=== PATIENT | male | born 1950 | race Caucasian/White ===

== ENCOUNTER 2018-12-30 10:17 | Inpatient (IN) | payer MEDICAID ==
[2018-12-30 11:23] LABS: ADD MAN DIFF? NO
[2018-12-30 11:29] LABS: BASOPHIL # 0.1 10^3/ul (0.0-0.1); BASOPHILS % 0.7 % (0.0-2.0); EOSINOPHILS # 0.2 10^3/ul (0.0-0.5); EOSINOPHILS % 2.2 % (0.0-7.0); HEMATOCRIT 37.1 % (42.0-52.0); HEMOGLOBIN 12.2 g/dl (14.0-18.0); LYMPHOCYTES # 2.1 10^3/ul (0.8-2.9); LYMPHOCYTES % 26.1 % (15.0-51.0); MEAN CORPUSCULAR HEMOGLOBIN 29.3 pg (29.0-33.0); MEAN CORPUSCULAR HGB CONC 32.9 g/dl (32.0-37.0); MEAN CORPUSCULAR VOLUME 89.2 fl (82.0-101.0); MEAN PLATELET VOLUME 10.1 fl (7.4-10.4); MONOCYTE # 0.6 10^3/ul (0.3-0.9); MONOCYTES % 7.1 % (0.0-11.0); NEUTROPHIL # 5.2 10^3/ul (1.6-7.5); NEUTROPHILS % 63.7 % (39.0-77.0); PLATELET COUNT 330 10^3/UL (140-415); RED BLOOD COUNT 4.16 10^6/ul (4.70-6.10); RED CELL DISTRIBUTION WIDTH 12.8 % (11.5-14.5)
[2018-12-30 11:29] LABS: WHITE BLOOD COUNT 8.2 10^3/ul (4.8-10.8)
[2018-12-30] MEDS: KETOROLAC 15 MG INJ IV (11:31)
[2018-12-30] MEDS: LACTATED RINGER'S 1,000 ML IV (11:31)
[2018-12-30] MEDS: PIPER-TAZO 3.375 GM IV (PMX) 100 ML IVPB (11:32)
[2018-12-30 11:41] LABS: ANION GAP 8 (5-13); BLOOD UREA NITROGEN 28 mg/dl (7-20); CARBON DIOXIDE 27 mmol/L (21-31); CHLORIDE 106 mmol/L (97-110); CREATININE 0.95 mg/dl (0.61-1.24); Estimated GFR > 60 mL/min (>60); GLUCOSE 125 mg/dl (70-220); POTASSIUM 5.4 mmol/L (3.5-5.1); SODIUM 141 mmol/L (135-144)
[2018-12-30 11:49] LABS: INR 0.94; PROTIME 12.7 Sec (11.9-14.9)
[2018-12-30 11:50] LABS: PARTIAL THROMBOPLASTIN TIME 32.1 Sec (23.0-35.0)
[2018-12-30] MEDS: VANCOMYCIN 1 GM (PMX) 250 ML IVPB (12:13)
[2018-12-30] MEDS ORDERED: ACETAMINOPHEN 325 MG TAB PO (14:30)
[2018-12-30] MEDS ORDERED: NACL 0.9% 3 ML SYG IV (14:30)
[2018-12-30] MEDS ORDERED: VANCOMYCIN IV PER PHARMACY XX (14:30)
[2018-12-30] MEDS: SODIUM POLYSTYRENE 15 GM KIT (POWDER + SORBITOL) PO (15:15)
[2018-12-30] MEDS: NA POLYST SULFON 15 GM/60 ML BTL PO (15:18)
[2018-12-30] MEDS: INSULIN ASPART [NOVOLOG] 3 ML PEN SC ×2 (17:40→20:46)
[2018-12-30] MEDS: VANCOMYCIN 1 GM 250 ML IVPB (20:39)
[2018-12-30] MEDS: BUSPIRONE 10 MG TAB PO (20:46)
[2018-12-30] MEDS: INSULIN GLARGINE [LANTus] (100 UNITS/ML) SYG SC (20:48)
[2018-12-30] MEDS: ACCU-CHEK XX (21:40)
[2018-12-31 06:21] LABS: ADD MAN DIFF? NO
[2018-12-31 06:26] LABS: BASOPHIL # 0.1 10^3/ul (0.0-0.1); BASOPHILS % 0.8 % (0.0-2.0); EOSINOPHILS # 0.3 10^3/ul (0.0-0.5); EOSINOPHILS % 4.1 % (0.0-7.0); HEMATOCRIT 32.9 % (42.0-52.0); HEMOGLOBIN 11.1 g/dl (14.0-18.0); LYMPHOCYTES % 31.1 % (15.0-51.0); MEAN CORPUSCULAR HEMOGLOBIN 29.8 pg (29.0-33.0); MEAN CORPUSCULAR HGB CONC 33.7 g/dl (32.0-37.0); MEAN CORPUSCULAR VOLUME 88.2 fl (82.0-101.0); MEAN PLATELET VOLUME 9.2 fl (7.4-10.4); MONOCYTE # 0.6 10^3/ul (0.3-0.9); NEUTROPHIL # 3.6 10^3/ul (1.6-7.5); NEUTROPHILS % 54.7 % (39.0-77.0); PLATELET COUNT 285 10^3/UL (140-415); RED BLOOD COUNT 3.73 10^6/ul (4.70-6.10); RED CELL DISTRIBUTION WIDTH 12.6 % (11.5-14.5)
[2018-12-31 06:26] LABS: WHITE BLOOD COUNT 6.6 10^3/ul (4.8-10.8)
[2018-12-31 06:44] LABS: HEMOGLOBIN A1C 6.4 % (0-5.9)
[2018-12-31] MEDS ORDERED: GLUCOSE GEL 15 GRAM TUBE PO ×2 (06:45)
[2018-12-31] MEDS ORDERED: GLUCOSE GEL 15 GRAM TUBE BUCCAL (06:45)
[2018-12-31] MEDS ORDERED: DEXTROSE 50% 50 ML SYRINGE IV ×2 (06:45)
[2018-12-31] MEDS ORDERED: GLUCAGON 1 MG INJ IM (06:45)
[2018-12-31 06:54] LABS: ALANINE AMINOTRANSFERASE 9 IU/L (13-69); ALBUMIN 3.6 g/dl (3.3-4.9); ALBUMIN/GLOBULIN RATIO 1.24; ALKALINE PHOSPHATASE 37 IU/L (42-121); ANION GAP 9 (5-13); ASPARTATE AMINO TRANSFERASE 19 IU/L (15-46); BILIRUBIN,INDIRECT 0.2 mg/dl (0-1.1); BILIRUBIN,TOTAL 0.2 mg/dl (0.2-1.3); BLOOD UREA NITROGEN 31 mg/dl (7-20); CALCIUM 9.4 mg/dl (8.4-10.2); CARBON DIOXIDE 25 mmol/L (21-31); CHLORIDE 108 mmol/L (97-110); CHOL/HDL RATIO 6.4 RATIO; CHOLESTEROL 154 mg/dl (100-200); CREATININE 0.92 mg/dl (0.61-1.24); Estimated GFR > 60 mL/min (>60); GLUCOSE 80 mg/dl (70-220); HDL CHOLESTEROL 24 mg/dl (31-75); LDL CHOLESTEROL,CALCULATED 101 mg/dl; MAGNESIUM 1.9 mg/dl (1.7-2.5); PHOSPHORUS 3.7 mg/dl (2.5-4.9); POTASSIUM 3.5 mmol/L (3.5-5.1); SODIUM 142 mmol/L (135-144); TOTAL PROTEIN 6.5 g/dl (6.1-8.1); TRIGLYCERIDES 146 mg/dl (0-149)
[2018-12-31] MEDS: FENOFIBRATE 145 MG TAB PO (08:05)
[2018-12-31] MEDS: ENOXAPARIN 40 MG/0.4 ML SYG SC (08:05)
[2018-12-31] MEDS: BUSPIRONE 10 MG TAB PO ×2 (08:05→21:16)
[2018-12-31] MEDS: INSULIN ASPART [NOVOLOG] 3 ML PEN SC ×4 (08:09→21:36)
[2018-12-31] MEDS: NICOTINE (21 MG/24 HR) PATCH TRANSDERM (08:28)
[2018-12-31] MEDS: VANCOMYCIN 1 GM 250 ML IVPB ×2 (08:28→21:16)
[2018-12-31] MEDS ORDERED: NICOTINE (14 MG/24 HR) PATCH TRANSDERM (11:30)
[2018-12-31] MEDS ORDERED: FENTAnyl 50 MCG/ML VIAL (14:51)
[2018-12-31] MEDS ORDERED: MIDAZOLAM 1 MG/ML 2 ML INJ (14:51)
[2018-12-31] MEDS ORDERED: IODIXANOL LOCM 100 ML BTL (15:13)
[2018-12-31] MEDS ORDERED: HEPARIN 1000 UNITS/ML 10 ML INJ (15:13)
[2018-12-31] MEDS ORDERED: HEPARIN 1000 UNITS/NS (A-LINE) 1,000 ML (15:13)
[2018-12-31] MEDS ORDERED: LIDOCAINE 1% (MDV) 20 ML INJ (15:13)
[2018-12-31] MEDS: PIPER-TAZO 3.375 GM IV (PMX) 100 ML IVPB ×2 (17:45→23:24)
[2018-12-31 19:49] LABS: GLUCOSE 127 mg/dl (70-220)
[2018-12-31 19:55] LABS: VANCOMYCIN,TROUGH 15.4 ug/ml (10.0-20.0)
[2018-12-31] MEDS: SOD CHLORIDE 0.9% 1,000 ML IV (21:16)
[2018-12-31] MEDS: INSULIN GLARGINE [LANTus] (100 UNITS/ML) SYG SC (21:18)
[2019-01-01] MEDS ORDERED: ACCU-CHEK XX (02:00)
[2019-01-01] MEDS: HYDROCODONE/APAP (5/325) TAB PO ×2 (05:00→20:11)
[2019-01-01] MEDS: PIPER-TAZO 3.375 GM IV (PMX) 100 ML IVPB ×2 (05:01→13:47)
[2019-01-01 07:55] LABS: ADD MAN DIFF? NO
[2019-01-01] MEDS: INSULIN ASPART [NOVOLOG] 3 ML PEN SC ×4 (08:00→20:19)
[2019-01-01 08:04] LABS: BASOPHILS % 0.5 % (0.0-2.0); EOSINOPHILS # 0.2 10^3/ul (0.0-0.5); HEMATOCRIT 32.2 % (42.0-52.0); HEMOGLOBIN 10.6 g/dl (14.0-18.0); LYMPHOCYTES # 1.5 10^3/ul (0.8-2.9); LYMPHOCYTES % 20.2 % (15.0-51.0); MEAN CORPUSCULAR HEMOGLOBIN 29.1 pg (29.0-33.0); MEAN CORPUSCULAR HGB CONC 32.9 g/dl (32.0-37.0); MEAN CORPUSCULAR VOLUME 88.5 fl (82.0-101.0); MEAN PLATELET VOLUME 9.7 fl (7.4-10.4); MONOCYTE # 0.5 10^3/ul (0.3-0.9); MONOCYTES % 7.3 % (0.0-11.0); NEUTROPHIL # 5.1 10^3/ul (1.6-7.5); NEUTROPHILS % 68.7 % (39.0-77.0); PLATELET COUNT 291 10^3/UL (140-415); RED BLOOD COUNT 3.64 10^6/ul (4.70-6.10); RED CELL DISTRIBUTION WIDTH 12.7 % (11.5-14.5)
[2019-01-01 08:04] LABS: WHITE BLOOD COUNT 7.4 10^3/ul (4.8-10.8)
[2019-01-01 08:24] LABS: ANION GAP 8 (5-13); BLOOD UREA NITROGEN 23 mg/dl (7-20); CALCIUM 9.1 mg/dl (8.4-10.2); CARBON DIOXIDE 25 mmol/L (21-31); CHLORIDE 110 mmol/L (97-110); CREATININE 0.84 mg/dl (0.61-1.24); Estimated GFR > 60 mL/min (>60); GLUCOSE 91 mg/dl (70-220); POTASSIUM 3.3 mmol/L (3.5-5.1); SODIUM 143 mmol/L (135-144)
[2019-01-01] MEDS: VANCOMYCIN 1 GM 250 ML IVPB ×2 (08:24→20:14)
[2019-01-01] MEDS: ENOXAPARIN 40 MG/0.4 ML SYG SC (08:27)
[2019-01-01] MEDS: NICOTINE (21 MG/24 HR) PATCH TRANSDERM (08:29)
[2019-01-01] MEDS: BUSPIRONE 10 MG TAB PO ×2 (08:30→20:11)
[2019-01-01] MEDS: FENOFIBRATE 145 MG TAB PO (08:30)
[2019-01-01] MEDS: CASPOFUNGIN 70 MG in SOD CHLORIDE 0.9% 250 ML IVPB (13:39)
[2019-01-01] MEDS: INSULIN GLARGINE [LANTus] (100 UNITS/ML) SYG SC (20:20)
[2019-01-01 21:19] LABS: IRON 30 ug/dl (35-150)
[2019-01-01 21:28] LABS: % IRON SATURATION 11 % SAT (22-52); TOTAL IRON BINDING CAPACITY 271 ug/dl (241-421)
[2019-01-01] MEDS: POTASSIUM CHLORIDE (SR) 20 MEQ TAB PO (21:34)
[2019-01-02] MEDS: LEVOFLOXACIN 750 MG TABLET PO (05:44)
[2019-01-02 06:37] LABS: ANION GAP 7 (5-13); BLOOD UREA NITROGEN 19 mg/dl (7-20); CALCIUM 9.1 mg/dl (8.4-10.2); CARBON DIOXIDE 25 mmol/L (21-31); CHLORIDE 110 mmol/L (97-110); Estimated GFR > 60 mL/min (>60); GLUCOSE 90 mg/dl (70-220); POTASSIUM 3.6 mmol/L (3.5-5.1); SODIUM 142 mmol/L (135-144)
[2019-01-02] MEDS: INSULIN ASPART [NOVOLOG] 3 ML PEN SC ×4 (08:00→20:34)
[2019-01-02] MEDS: VANCOMYCIN 1 GM 250 ML IVPB ×2 (08:53→20:32)
[2019-01-02] MEDS: BUSPIRONE 10 MG TAB PO ×2 (08:53→20:34)
[2019-01-02] MEDS: BUPROPION (XL) 150 MG TAB PO (08:53)
[2019-01-02] MEDS: FENOFIBRATE 145 MG TAB PO (08:54)
[2019-01-02] MEDS: NICOTINE (21 MG/24 HR) PATCH TRANSDERM (08:54)
[2019-01-02] MEDS: ENOXAPARIN 40 MG/0.4 ML SYG SC (08:56)
[2019-01-02] MEDS: CASPOFUNGIN 50 MG in SOD CHLORIDE 0.9% 250 ML IVPB (12:17)
[2019-01-02] MEDS: FERROUS FUMARATE (SR) TAB PO (12:17)
[2019-01-02] MEDS: FISH OIL 1,000 MG CAP PO ×2 (12:17→20:34)
[2019-01-02] MEDS: ATORVASTATIN 20 MG TAB PO (20:34)
[2019-01-02] MEDS: HYDROCODONE/APAP (5/325) TAB PO (20:35)
[2019-01-02] MEDS: INSULIN GLARGINE [LANTus] (100 UNITS/ML) SYG SC (20:38)
[2019-01-03] MEDS: LEVOFLOXACIN 750 MG TABLET PO (06:35)
[2019-01-03] MEDS: INSULIN ASPART [NOVOLOG] 3 ML PEN SC ×4 (08:00→20:30)
[2019-01-03] MEDS: FISH OIL 1,000 MG CAP PO ×2 (08:27→20:31)
[2019-01-03] MEDS: BUSPIRONE 10 MG TAB PO ×2 (08:27→20:31)
[2019-01-03] MEDS: FERROUS FUMARATE (SR) TAB PO (08:27)
[2019-01-03] MEDS: VANCOMYCIN 1 GM 250 ML IVPB ×2 (08:27→20:30)
[2019-01-03] MEDS: BUPROPION (XL) 150 MG TAB PO (08:27)
[2019-01-03] MEDS: ENOXAPARIN 40 MG/0.4 ML SYG SC (08:29)
[2019-01-03] MEDS: NICOTINE (21 MG/24 HR) PATCH TRANSDERM (08:29)
[2019-01-03 08:31] LABS: VANCOMYCIN,TROUGH 14.2 ug/ml (10.0-20.0)
[2019-01-03] MEDS: CASPOFUNGIN 50 MG in SOD CHLORIDE 0.9% 250 ML IVPB (13:47)
[2019-01-03] MEDS: INSULIN GLARGINE [LANTus] (100 UNITS/ML) SYG SC (20:31)
[2019-01-03] MEDS: ATORVASTATIN 20 MG TAB PO (20:31)
[2019-01-03] MEDS: HYDROCODONE/APAP (5/325) TAB PO (20:32)
[2019-01-04] MEDS: LEVOFLOXACIN 750 MG TABLET PO (05:26)
[2019-01-04 05:52] LABS: ADD MAN DIFF? NO
[2019-01-04 06:07] LABS: BASOPHILS % 0.6 % (0.0-2.0); EOSINOPHILS # 0.3 10^3/ul (0.0-0.5); EOSINOPHILS % 3.9 % (0.0-7.0); HEMATOCRIT 31.1 % (42.0-52.0); HEMOGLOBIN 10.2 g/dl (14.0-18.0); LYMPHOCYTES # 1.6 10^3/ul (0.8-2.9); LYMPHOCYTES % 25.5 % (15.0-51.0); MEAN CORPUSCULAR HEMOGLOBIN 28.7 pg (29.0-33.0); MEAN CORPUSCULAR HGB CONC 32.8 g/dl (32.0-37.0); MEAN CORPUSCULAR VOLUME 87.6 fl (82.0-101.0); MEAN PLATELET VOLUME 9.6 fl (7.4-10.4); MONOCYTE # 0.7 10^3/ul (0.3-0.9); MONOCYTES % 10.6 % (0.0-11.0); NEUTROPHIL # 3.8 10^3/ul (1.6-7.5); NEUTROPHILS % 59.2 % (39.0-77.0); PLATELET COUNT 295 10^3/UL (140-415); RED BLOOD COUNT 3.55 10^6/ul (4.70-6.10); RED CELL DISTRIBUTION WIDTH 12.9 % (11.5-14.5)
[2019-01-04 06:07] LABS: WHITE BLOOD COUNT 6.4 10^3/ul (4.8-10.8)
[2019-01-04 06:24] LABS: ALANINE AMINOTRANSFERASE 14 IU/L (13-69); ALBUMIN 3.4 g/dl (3.3-4.9); ALBUMIN/GLOBULIN RATIO 1.06; ALKALINE PHOSPHATASE 42 IU/L (42-121); ANION GAP 8 (5-13); ASPARTATE AMINO TRANSFERASE 17 IU/L (15-46); BILIRUBIN,INDIRECT 0.2 mg/dl (0-1.1); BILIRUBIN,TOTAL 0.2 mg/dl (0.2-1.3); BLOOD UREA NITROGEN 19 mg/dl (7-20); CALCIUM 9.1 mg/dl (8.4-10.2); CARBON DIOXIDE 27 mmol/L (21-31); CHLORIDE 107 mmol/L (97-110); CREATININE 0.96 mg/dl (0.61-1.24); Estimated GFR > 60 mL/min (>60); GLUCOSE 108 mg/dl (70-220); POTASSIUM 3.5 mmol/L (3.5-5.1); SODIUM 142 mmol/L (135-144); TOTAL PROTEIN 6.6 g/dl (6.1-8.1)
[2019-01-04 06:25] LABS: INR 1.09; PROTIME 14.2 Sec (11.9-14.9); PT RATIO 1.1
[2019-01-04 06:26] LABS: PARTIAL THROMBOPLASTIN TIME 35.6 Sec (23.0-35.0)
[2019-01-04] MEDS: INSULIN ASPART [NOVOLOG] 3 ML PEN SC ×4 (07:59→21:16)
[2019-01-04] MEDS: BUPROPION (XL) 150 MG TAB PO ×2 (09:00→09:20)
[2019-01-04] MEDS: BUSPIRONE 10 MG TAB PO ×2 (09:00→21:00)
[2019-01-04] MEDS: FERROUS FUMARATE (SR) TAB PO (09:19)
[2019-01-04] MEDS: FISH OIL 1,000 MG CAP PO ×2 (09:20→21:09)
[2019-01-04] MEDS: NICOTINE (21 MG/24 HR) PATCH TRANSDERM (09:21)
[2019-01-04] MEDS: VANCOMYCIN 1 GM 250 ML IVPB ×2 (09:21→21:09)
[2019-01-04] MEDS: ENOXAPARIN 40 MG/0.4 ML SYG SC (09:22)
[2019-01-04] MEDS: CASPOFUNGIN 50 MG in SOD CHLORIDE 0.9% 250 ML IVPB (15:13)
[2019-01-04] MEDS: ATORVASTATIN 20 MG TAB PO (21:09)
[2019-01-04] MEDS: INSULIN GLARGINE [LANTus] (100 UNITS/ML) SYG SC (21:17)
[2019-01-04] MEDS: HYDROCODONE/APAP (5/325) TAB PO (21:30)
[2019-01-05] MEDS: LEVOFLOXACIN 750 MG TABLET PO (05:52)
[2019-01-05] MEDS: INSULIN ASPART [NOVOLOG] 3 ML PEN SC ×4 (08:00→20:38)
[2019-01-05] MEDS: FISH OIL 1,000 MG CAP PO ×2 (08:17→20:40)
[2019-01-05] MEDS: BUPROPION (XL) 150 MG TAB PO ×2 (08:17→08:25)
[2019-01-05] MEDS: BUSPIRONE 10 MG TAB PO ×4 (08:17→21:00)
[2019-01-05] MEDS: FERROUS FUMARATE (SR) TAB PO (08:17)
[2019-01-05] MEDS: ENOXAPARIN 40 MG/0.4 ML SYG SC (08:18)
[2019-01-05] MEDS: NICOTINE (21 MG/24 HR) PATCH TRANSDERM (08:25)
[2019-01-05] MEDS: VANCOMYCIN 1 GM 250 ML IVPB ×2 (09:06→20:40)
[2019-01-05] MEDS: CASPOFUNGIN 50 MG in SOD CHLORIDE 0.9% 250 ML IVPB (13:51)
[2019-01-05] MEDS: INSULIN GLARGINE [LANTus] (100 UNITS/ML) SYG SC (20:39)
[2019-01-05] MEDS: ATORVASTATIN 20 MG TAB PO (20:39)
[2019-01-05] MEDS: HYDROCODONE/APAP (5/325) TAB PO (20:52)
[2019-01-06] MEDS: LEVOFLOXACIN 750 MG TABLET PO (05:36)
[2019-01-06] MEDS: INSULIN ASPART [NOVOLOG] 3 ML PEN SC ×4 (08:00→20:49)
[2019-01-06] MEDS: VANCOMYCIN 1 GM 250 ML IVPB ×2 (08:15→20:35)
[2019-01-06] MEDS: BUSPIRONE 10 MG TAB PO ×2 (08:16→20:58)
[2019-01-06] MEDS: FERROUS FUMARATE (SR) TAB PO (08:16)
[2019-01-06] MEDS: NICOTINE (21 MG/24 HR) PATCH TRANSDERM (08:16)
[2019-01-06] MEDS: FISH OIL 1,000 MG CAP PO ×2 (08:16→20:44)
[2019-01-06] MEDS: ENOXAPARIN 40 MG/0.4 ML SYG SC (08:17)
[2019-01-06] MEDS: BUPROPION (XL) 150 MG TAB PO (08:17)
[2019-01-06] MEDS: CASPOFUNGIN 50 MG in SOD CHLORIDE 0.9% 250 ML IVPB (13:51)
[2019-01-06] MEDS: INSULIN GLARGINE [LANTus] (100 UNITS/ML) SYG SC (20:47)
[2019-01-06] MEDS: ATORVASTATIN 20 MG TAB PO (20:50)
[2019-01-06] MEDS: HYDROCODONE/APAP (5/325) TAB PO (21:01)
[2019-01-07] MEDS: LEVOFLOXACIN 750 MG TABLET PO (05:37)
[2019-01-07 07:50] LABS: BLOOD UREA NITROGEN 18 mg/dl (7-20)
[2019-01-07 07:50] LABS: CREATININE 0.99 mg/dl (0.61-1.24)
[2019-01-07] MEDS: INSULIN ASPART [NOVOLOG] 3 ML PEN SC ×4 (08:00→20:52)
[2019-01-07] MEDS: BUPROPION (XL) 150 MG TAB PO ×2 (09:00→09:16)
[2019-01-07] MEDS: BUSPIRONE 10 MG TAB PO ×3 (09:00→20:54)
[2019-01-07] MEDS: VANCOMYCIN 1 GM 250 ML IVPB ×2 (09:14→20:47)
[2019-01-07] MEDS: FISH OIL 1,000 MG CAP PO ×2 (09:15→20:48)
[2019-01-07] MEDS: FERROUS FUMARATE (SR) TAB PO (09:16)
[2019-01-07] MEDS: NICOTINE (21 MG/24 HR) PATCH TRANSDERM (09:16)
[2019-01-07] MEDS: ENOXAPARIN 40 MG/0.4 ML SYG SC (09:19)
[2019-01-07] MEDS: CASPOFUNGIN 50 MG in SOD CHLORIDE 0.9% 250 ML IVPB (13:52)
[2019-01-07] MEDS: LIDOCAINE 1% (MPF) 5 ML VIAL SC (14:20)
[2019-01-07] MEDS: ATORVASTATIN 20 MG TAB PO (20:48)
[2019-01-07] MEDS: INSULIN GLARGINE [LANTus] (100 UNITS/ML) SYG SC (20:49)
[2019-01-07] MEDS: HYDROCODONE/APAP (5/325) TAB PO (20:57)
[2019-01-08] MEDS: LEVOFLOXACIN 750 MG TABLET PO (05:27)
[2019-01-08 07:46] LABS: VANCOMYCIN,TROUGH 17.1 ug/ml (10.0-20.0)
[2019-01-08] MEDS: INSULIN ASPART [NOVOLOG] 3 ML PEN SC ×4 (07:52→20:41)
[2019-01-08] MEDS: VANCOMYCIN 1 GM 250 ML IVPB ×2 (08:51→20:41)
[2019-01-08] MEDS: BUPROPION (XL) 150 MG TAB PO ×2 (08:52→09:00)
[2019-01-08] MEDS: ENOXAPARIN 40 MG/0.4 ML SYG SC (08:52)
[2019-01-08] MEDS: FERROUS FUMARATE (SR) TAB PO (08:52)
[2019-01-08] MEDS: FISH OIL 1,000 MG CAP PO ×2 (08:52→20:40)
[2019-01-08] MEDS: FLUCONAZOLE 200 MG TAB PO (08:52)
[2019-01-08] MEDS: BUSPIRONE 10 MG TAB PO ×4 (08:52→21:00)
[2019-01-08] MEDS: NICOTINE (21 MG/24 HR) PATCH TRANSDERM (08:53)
[2019-01-08] MEDS: ATORVASTATIN 20 MG TAB PO (20:40)
[2019-01-08] MEDS: INSULIN GLARGINE [LANTus] (100 UNITS/ML) SYG SC (20:42)
[2019-01-08] MEDS: HYDROCODONE/APAP (5/325) TAB PO (20:47)
[2019-01-09] MEDS: LEVOFLOXACIN 750 MG TABLET PO (05:44)
[2019-01-09] MEDS: INSULIN ASPART [NOVOLOG] 3 ML PEN SC ×4 (08:00→21:00)
[2019-01-09] MEDS: NICOTINE (21 MG/24 HR) PATCH TRANSDERM (08:33)
[2019-01-09] MEDS: FISH OIL 1,000 MG CAP PO ×2 (08:33→21:10)
[2019-01-09] MEDS: FLUCONAZOLE 200 MG TAB PO (08:33)
[2019-01-09] MEDS: VANCOMYCIN 1 GM 250 ML IVPB ×2 (08:33→19:57)
[2019-01-09] MEDS: BUSPIRONE 10 MG TAB PO ×2 (08:34→21:10)
[2019-01-09] MEDS: BUPROPION (XL) 150 MG TAB PO (08:34)
[2019-01-09] MEDS: FERROUS FUMARATE (SR) TAB PO (08:34)
[2019-01-09] MEDS: ENOXAPARIN 40 MG/0.4 ML SYG SC (08:35)
[2019-01-09] MEDS: INSULIN GLARGINE [LANTus] (100 UNITS/ML) SYG SC (20:01)
[2019-01-09] MEDS: ATORVASTATIN 20 MG TAB PO (21:10)
[2019-01-09] MEDS: HYDROCODONE/APAP (5/325) TAB PO (21:17)
[2019-01-10] MEDS: LEVOFLOXACIN 750 MG TABLET PO (05:38)
[2019-01-10 06:51] LABS: BLOOD UREA NITROGEN 19 mg/dl (7-20)
[2019-01-10 06:51] LABS: CREATININE 1.06 mg/dl (0.61-1.24)
[2019-01-10] MEDS: INSULIN ASPART [NOVOLOG] 3 ML PEN SC ×4 (07:53→21:00)
[2019-01-10] MEDS: VANCOMYCIN 1 GM 250 ML IVPB ×2 (08:25→20:05)
[2019-01-10] MEDS: ENOXAPARIN 40 MG/0.4 ML SYG SC (08:26)
[2019-01-10] MEDS: FLUCONAZOLE 200 MG TAB PO (08:27)
[2019-01-10] MEDS: FERROUS FUMARATE (SR) TAB PO (08:27)
[2019-01-10] MEDS: BUPROPION (XL) 150 MG TAB PO ×2 (08:27→08:39)
[2019-01-10] MEDS: BUSPIRONE 10 MG TAB PO ×3 (08:27→21:02)
[2019-01-10] MEDS: FISH OIL 1,000 MG CAP PO ×2 (08:27→21:03)
[2019-01-10] MEDS: NICOTINE (21 MG/24 HR) PATCH TRANSDERM (08:28)
[2019-01-10] MEDS: INSULIN GLARGINE [LANTus] (100 UNITS/ML) SYG SC (20:12)
[2019-01-10] MEDS: HYDROCODONE/APAP (5/325) TAB PO (21:02)
[2019-01-10] MEDS: ATORVASTATIN 20 MG TAB PO (21:02)
[2019-01-11] MEDS: LEVOFLOXACIN 750 MG TABLET PO (05:45)
[2019-01-11 05:49] LABS: ADD MAN DIFF? NO
[2019-01-11 05:55] LABS: BASOPHIL # 0.1 10^3/ul (0.0-0.1); BASOPHILS % 0.8 % (0.0-2.0); EOSINOPHILS # 0.2 10^3/ul (0.0-0.5); EOSINOPHILS % 3.9 % (0.0-7.0); HEMATOCRIT 30.1 % (42.0-52.0); HEMOGLOBIN 9.7 g/dl (14.0-18.0); LYMPHOCYTES # 1.8 10^3/ul (0.8-2.9); LYMPHOCYTES % 28.9 % (15.0-51.0); MEAN CORPUSCULAR HEMOGLOBIN 29.1 pg (29.0-33.0); MEAN CORPUSCULAR HGB CONC 32.2 g/dl (32.0-37.0); MEAN CORPUSCULAR VOLUME 90.4 fl (82.0-101.0); MEAN PLATELET VOLUME 11.5 fl (7.4-10.4); MONOCYTE # 0.7 10^3/ul (0.3-0.9); MONOCYTES % 11.9 % (0.0-11.0); NEUTROPHIL # 3.3 10^3/ul (1.6-7.5); NEUTROPHILS % 54.2 % (39.0-77.0); PLATELET COUNT 238 10^3/UL (140-415); POSITIVE DIFF @See below; RED BLOOD COUNT 3.33 10^6/ul (4.70-6.10); RED CELL DISTRIBUTION WIDTH 13.2 % (11.5-14.5)
[2019-01-11 05:55] LABS: WHITE BLOOD COUNT 6.2 10^3/ul (4.8-10.8)
[2019-01-11 06:12] LABS: ANION GAP 11 (5-13); BLOOD UREA NITROGEN 23 mg/dl (7-20); CALCIUM 9.7 mg/dl (8.4-10.2); CARBON DIOXIDE 25 mmol/L (21-31); CHLORIDE 106 mmol/L (97-110); CREATININE 0.99 mg/dl (0.61-1.24); Estimated GFR > 60 mL/min (>60); GLUCOSE 137 mg/dl (70-220); POTASSIUM 4.1 mmol/L (3.5-5.1); SODIUM 142 mmol/L (135-144)
[2019-01-11] MEDS: INSULIN ASPART [NOVOLOG] 3 ML PEN SC ×4 (08:00→21:20)
[2019-01-11] MEDS: VANCOMYCIN 1 GM 250 ML IVPB ×2 (08:03→20:33)
[2019-01-11] MEDS: NICOTINE (21 MG/24 HR) PATCH TRANSDERM (08:24)
[2019-01-11] MEDS: FLUCONAZOLE 200 MG TAB PO (08:24)
[2019-01-11] MEDS: FERROUS FUMARATE (SR) TAB PO (08:24)
[2019-01-11] MEDS: FISH OIL 1,000 MG CAP PO ×2 (08:24→21:08)
[2019-01-11] MEDS: ENOXAPARIN 40 MG/0.4 ML SYG SC (08:25)
[2019-01-11] MEDS: BUSPIRONE 10 MG TAB PO ×2 (08:27→21:00)
[2019-01-11] MEDS: BUPROPION (XL) 150 MG TAB PO (08:28)
[2019-01-11] MEDS: INSULIN GLARGINE [LANTus] (100 UNITS/ML) SYG SC (20:16)
[2019-01-11 20:29] LABS: VANCOMYCIN,TROUGH 16.4 ug/ml (10.0-20.0)
[2019-01-11] MEDS: ATORVASTATIN 20 MG TAB PO (21:07)
[2019-01-11] MEDS: HYDROCODONE/APAP (5/325) TAB PO (21:14)
[2019-01-12] MEDS: LEVOFLOXACIN 750 MG TABLET PO (05:46)
[2019-01-12] MEDS: INSULIN ASPART [NOVOLOG] 3 ML PEN SC ×4 (08:00→20:22)
[2019-01-12] MEDS: VANCOMYCIN 1 GM 250 ML IVPB ×2 (08:21→20:17)
[2019-01-12] MEDS: FISH OIL 1,000 MG CAP PO ×2 (08:22→20:19)
[2019-01-12] MEDS: NICOTINE (21 MG/24 HR) PATCH TRANSDERM (08:22)
[2019-01-12] MEDS: FLUCONAZOLE 200 MG TAB PO (08:22)
[2019-01-12] MEDS: FERROUS FUMARATE (SR) TAB PO (08:22)
[2019-01-12] MEDS: ENOXAPARIN 40 MG/0.4 ML SYG SC (08:23)
[2019-01-12] MEDS: BUPROPION (XL) 150 MG TAB PO (08:24)
[2019-01-12] MEDS: BUSPIRONE 10 MG TAB PO ×2 (08:24→20:20)
[2019-01-12] MEDS: ATORVASTATIN 20 MG TAB PO (20:19)
[2019-01-12] MEDS: INSULIN GLARGINE [LANTus] (100 UNITS/ML) SYG SC (20:19)
[2019-01-12] MEDS: HYDROCODONE/APAP (5/325) TAB PO (20:28)
[2019-01-13] MEDS: ALTEPLASE (CATHFLO) 2 MG INJ CATHETER (03:15)
[2019-01-13] MEDS: LEVOFLOXACIN 750 MG TABLET PO (05:45)
[2019-01-13] MEDS: INSULIN ASPART [NOVOLOG] 3 ML PEN SC ×4 (08:00→20:14)
[2019-01-13 08:01] LABS: CREATININE 1.04 mg/dl (0.61-1.24)
[2019-01-13 08:01] LABS: BLOOD UREA NITROGEN 25 mg/dl (7-20)
[2019-01-13] MEDS: VANCOMYCIN 1 GM 250 ML IVPB ×2 (08:27→20:09)
[2019-01-13] MEDS: FISH OIL 1,000 MG CAP PO ×2 (08:28→20:09)
[2019-01-13] MEDS: NICOTINE (21 MG/24 HR) PATCH TRANSDERM (08:28)
[2019-01-13] MEDS: FERROUS FUMARATE (SR) TAB PO (08:29)
[2019-01-13] MEDS: BUPROPION (XL) 150 MG TAB PO (08:30)
[2019-01-13] MEDS: BUSPIRONE 10 MG TAB PO ×2 (08:30→20:12)
[2019-01-13] MEDS: FLUCONAZOLE 200 MG TAB PO (08:37)
[2019-01-13] MEDS: ENOXAPARIN 40 MG/0.4 ML SYG SC (08:49)
[2019-01-13] MEDS: ATORVASTATIN 20 MG TAB PO (20:08)
[2019-01-13] MEDS: HYDROCODONE/APAP (5/325) TAB PO (20:11)
[2019-01-13] MEDS: INSULIN GLARGINE [LANTus] (100 UNITS/ML) SYG SC (20:11)
[2019-01-14] MEDS: LEVOFLOXACIN 750 MG TABLET PO (05:32)
[2019-01-14] MEDS: INSULIN ASPART [NOVOLOG] 3 ML PEN SC ×4 (08:00→21:00)
[2019-01-14] MEDS: VANCOMYCIN 1 GM 250 ML IVPB ×2 (08:59→21:54)
[2019-01-14] MEDS: FISH OIL 1,000 MG CAP PO ×2 (09:00→21:55)
[2019-01-14] MEDS: BUPROPION (XL) 150 MG TAB PO (09:00)
[2019-01-14] MEDS: BUSPIRONE 10 MG TAB PO ×2 (09:00→21:00)
[2019-01-14] MEDS: FLUCONAZOLE 200 MG TAB PO (09:00)
[2019-01-14] MEDS: FERROUS FUMARATE (SR) TAB PO (09:00)
[2019-01-14] MEDS: NICOTINE (21 MG/24 HR) PATCH TRANSDERM (09:00)
[2019-01-14] MEDS: ENOXAPARIN 40 MG/0.4 ML SYG SC (09:01)
[2019-01-14 11:18] LABS: ADD MAN DIFF? NO
[2019-01-14 11:21] LABS: WHITE BLOOD COUNT 5.1 10^3/ul (4.8-10.8)
[2019-01-14 11:21] LABS: BASOPHILS % 0.6 % (0.0-2.0); EOSINOPHILS # 0.2 10^3/ul (0.0-0.5); EOSINOPHILS % 4.3 % (0.0-7.0); HEMOGLOBIN 9.5 g/dl (14.0-18.0); LYMPHOCYTES # 1.2 10^3/ul (0.8-2.9); LYMPHOCYTES % 23.5 % (15.0-51.0); MEAN CORPUSCULAR HEMOGLOBIN 29.2 pg (29.0-33.0); MEAN CORPUSCULAR HGB CONC 32.8 g/dl (32.0-37.0); MEAN CORPUSCULAR VOLUME 89.2 fl (82.0-101.0); MEAN PLATELET VOLUME 9.4 fl (7.4-10.4); MONOCYTE # 0.5 10^3/ul (0.3-0.9); MONOCYTES % 10.5 % (0.0-11.0); NEUTROPHIL # 3.1 10^3/ul (1.6-7.5); NEUTROPHILS % 60.9 % (39.0-77.0); PLATELET COUNT 251 10^3/UL (140-415); RED BLOOD COUNT 3.25 10^6/ul (4.70-6.10)
[2019-01-14 11:43] LABS: INR 1.03; PROTIME 13.6 Sec (11.9-14.9); PT RATIO 1.1
[2019-01-14 11:44] LABS: PARTIAL THROMBOPLASTIN TIME 40.5 Sec (23.0-35.0)
[2019-01-14 11:54] LABS: ANION GAP 8 (5-13); BLOOD UREA NITROGEN 24 mg/dl (7-20); CALCIUM 8.9 mg/dl (8.4-10.2); CARBON DIOXIDE 27 mmol/L (21-31); CHLORIDE 104 mmol/L (97-110); CREATININE 1.01 mg/dl (0.61-1.24); Estimated GFR > 60 mL/min (>60); GLUCOSE 109 mg/dl (70-220); POTASSIUM 3.7 mmol/L (3.5-5.1); SODIUM 139 mmol/L (135-144)
[2019-01-14] MEDS: HYDROCODONE/APAP (5/325) TAB PO (21:12)
[2019-01-14] MEDS: ATORVASTATIN 20 MG TAB PO (21:55)
[2019-01-14] MEDS: INSULIN GLARGINE [LANTus] (100 UNITS/ML) SYG SC (21:57)
[2019-01-15] MEDS: INSULIN ASPART [NOVOLOG] 3 ML PEN SC ×6 (01:00→20:50)
[2019-01-15] MEDS: DEXTROSE 5%-0.45% NACL 1,000 ML IV ×2 (01:50→17:35)
[2019-01-15] MEDS ORDERED: ACCU-CHEK XX (02:00)
[2019-01-15] MEDS: LEVOFLOXACIN 750MG/D5W (PMX) 150 ML IVPB (06:03)
[2019-01-15 06:53] LABS: ADD MAN DIFF? NO
[2019-01-15 06:58] LABS: BASOPHILS % 0.7 % (0.0-2.0); EOSINOPHILS # 0.3 10^3/ul (0.0-0.5); EOSINOPHILS % 6.5 % (0.0-7.0); HEMATOCRIT 28.3 % (42.0-52.0); HEMOGLOBIN 9.3 g/dl (14.0-18.0); LYMPHOCYTES # 1.2 10^3/ul (0.8-2.9); LYMPHOCYTES % 25.8 % (15.0-51.0); MEAN CORPUSCULAR HEMOGLOBIN 29.2 pg (29.0-33.0); MEAN CORPUSCULAR HGB CONC 32.9 g/dl (32.0-37.0); MEAN CORPUSCULAR VOLUME 88.7 fl (82.0-101.0); MEAN PLATELET VOLUME 9.3 fl (7.4-10.4); MONOCYTE # 0.6 10^3/ul (0.3-0.9); MONOCYTES % 12.4 % (0.0-11.0); NEUTROPHIL # 2.5 10^3/ul (1.6-7.5); NEUTROPHILS % 54.4 % (39.0-77.0); PLATELET COUNT 238 10^3/UL (140-415); RED BLOOD COUNT 3.19 10^6/ul (4.70-6.10); RED CELL DISTRIBUTION WIDTH 13.2 % (11.5-14.5)
[2019-01-15 06:58] LABS: WHITE BLOOD COUNT 4.6 10^3/ul (4.8-10.8)
[2019-01-15] MEDS ORDERED: DESFLURANE 15 MIN (07:00)
[2019-01-15 07:27] LABS: ANION GAP 8 (5-13); BLOOD UREA NITROGEN 23 mg/dl (7-20); CALCIUM 8.9 mg/dl (8.4-10.2); CARBON DIOXIDE 27 mmol/L (21-31); CHLORIDE 106 mmol/L (97-110); CREATININE 1.02 mg/dl (0.61-1.24); Estimated GFR > 60 mL/min (>60); GLUCOSE 117 mg/dl (70-220); POTASSIUM 3.7 mmol/L (3.5-5.1); SODIUM 141 mmol/L (135-144)
[2019-01-15] MEDS ORDERED: THROMBIN 5000 UNIT VIAL (07:32)
[2019-01-15] MEDS ORDERED: GELATIN SIZE 100 SPONGE (07:32)
[2019-01-15] MEDS ORDERED: HEPARIN 1000 UNITS/ML 10 ML INJ ×2 (07:32→09:50)
[2019-01-15] MEDS: VANCOMYCIN 1 GM 250 ML IVPB ×2 (07:37→19:55)
[2019-01-15] MEDS: HEPARIN 1000 UNITS/ML 10 ML INJ IRR (07:45)
[2019-01-15] MEDS ORDERED: HYDROmorphONE 1 MG/5 ML IV SYRINGE IV ×3 (08:00→12:15)
[2019-01-15] MEDS ORDERED: MEPERIDINE 25 MG INJ IV ×2 (08:00→12:30)
[2019-01-15] MEDS ORDERED: ALBUTEROL 0.083% (NEB) 2.5 MG/3 ML AMP HHN ×2 (08:00→12:30)
[2019-01-15] MEDS ORDERED: DIPHENHYDRAMINE 50 MG INJ IV ×2 (08:00→12:30)
[2019-01-15] MEDS ORDERED: ONDANSETRON 4 MG INJ IV ×2 (08:00→12:30)
[2019-01-15] MEDS ORDERED: LABETALOL HCL 20MG INJ IV ×2 (08:00→12:30)
[2019-01-15] MEDS ORDERED: FENTAnyl 50 MCG/ML VIAL IV ×4 (08:00→12:30)
[2019-01-15] MEDS ORDERED: FENTAnyl 50 MCG/ML VIAL ×2 (08:22→12:15)
[2019-01-15] MEDS: BUSPIRONE 10 MG TAB PO ×2 (09:00→20:58)
[2019-01-15] MEDS: ENOXAPARIN 40 MG/0.4 ML SYG SC (09:00)
[2019-01-15] MEDS: FERROUS FUMARATE (SR) TAB PO (09:00)
[2019-01-15] MEDS: NICOTINE (21 MG/24 HR) PATCH TRANSDERM (09:00)
[2019-01-15] MEDS: BUPROPION (XL) 150 MG TAB PO (09:00)
[2019-01-15] MEDS: FLUCONAZOLE 200 MG TAB PO (09:00)
[2019-01-15] MEDS: FISH OIL 1,000 MG CAP PO ×2 (09:00→20:57)
[2019-01-15] MEDS ORDERED: SUCCINYLCHOLINE CHLORIDE 100 MG/5 ML SYG IV (11:07)
[2019-01-15] MEDS ORDERED: SUGAMMADEX SODIUM 200 MG/2 ML VIAL IV (11:07)
[2019-01-15] MEDS ORDERED: LIDOCAINE 100 MG SYRINGE (11:07)
[2019-01-15] MEDS ORDERED: ROCURONIUM 50 MG INJ (11:07)
[2019-01-15] MEDS ORDERED: CEFAZOLIN 1 GM INJ (11:07)
[2019-01-15] MEDS ORDERED: PROPOFOL 20 ML (11:07)
[2019-01-15] MEDS ORDERED: niCARdipine 50 MG in SOD CHLORIDE 0.9% 480 ML IV (11:30)
[2019-01-15] MEDS ORDERED: hydrALAzine 20 MG INJ (11:30)
[2019-01-15] MEDS: hydrALAzine 20 MG INJ IV (11:50)
[2019-01-15] MEDS: ONDANSETRON 4 MG INJ IV (11:52)
[2019-01-15] MEDS: METOCLOPRAMIDE 10 MG INJ IV (11:59)
[2019-01-15] MEDS ORDERED: hydrALAzine 20 MG INJ IV (12:30)
[2019-01-15] MEDS ORDERED: METOCLOPRAMIDE 10 MG INJ IV (12:30)
[2019-01-15] MEDS: FENTAnyl 50 MCG/ML VIAL IV ×3 (12:45→15:13)
[2019-01-15] MEDS: HYDROmorphONE 1 MG/5 ML IV SYRINGE IV ×2 (12:51→15:15)
[2019-01-15] MEDS: HYDROCODONE/APAP (5/325) TAB PO (17:58)
[2019-01-15] MEDS: CLOPIDOGREL 75 MG TAB PO (17:58)
[2019-01-15] MEDS: INSULIN GLARGINE [LANTus] (100 UNITS/ML) SYG SC (20:48)
[2019-01-15] MEDS: ATORVASTATIN 20 MG TAB PO (20:57)
[2019-01-16] MEDS: DEXTROSE 5%-0.45% NACL 1,000 ML IV (04:47)
[2019-01-16 05:42] LABS: ABNORMAL IP MESSAGE 1; HEMATOCRIT 18.5 % (42.0-52.0); MEAN CORPUSCULAR HGB CONC 32.4 g/dl (32.0-37.0); MEAN CORPUSCULAR VOLUME 89.4 fl (82.0-101.0); MEAN PLATELET VOLUME 9.7 fl (7.4-10.4); PLATELET COUNT 162 10^3/UL (140-415); POSITIVE DIFF @See below; RED BLOOD COUNT 2.07 10^6/ul (4.70-6.10); RED CELL DISTRIBUTION WIDTH 13.1 % (11.5-14.5)
[2019-01-16 05:42] LABS: WHITE BLOOD COUNT 5.1 10^3/ul (4.8-10.8)
[2019-01-16 05:51] LABS: ADD MAN DIFF? YES
[2019-01-16 06:15] LABS: ANION GAP 9 (5-13); BLOOD UREA NITROGEN 21 mg/dl (7-20); CALCIUM 8.4 mg/dl (8.4-10.2); CARBON DIOXIDE 24 mmol/L (21-31); CHLORIDE 104 mmol/L (97-110); CREATININE 0.88 mg/dl (0.61-1.24); Estimated GFR > 60 mL/min (>60); GLUCOSE 193 mg/dl (70-220); POTASSIUM 3.8 mmol/L (3.5-5.1); SODIUM 137 mmol/L (135-144)
[2019-01-16 06:17] LABS: HEMATOCRIT 25.6 % (42.0-52.0)
[2019-01-16 06:17] LABS: HEMOGLOBIN 8.4 g/dl (14.0-18.0)
[2019-01-16] MEDS: LEVOFLOXACIN 750 MG TABLET PO (06:41)
[2019-01-16] MEDS: VANCOMYCIN 1 GM 250 ML IVPB ×2 (07:57→20:24)
[2019-01-16] MEDS: INSULIN ASPART [NOVOLOG] 3 ML PEN SC ×4 (08:01→20:44)
[2019-01-16] MEDS: FISH OIL 1,000 MG CAP PO ×2 (08:20→20:24)
[2019-01-16] MEDS: FLUCONAZOLE 200 MG TAB PO (08:20)
[2019-01-16] MEDS: FERROUS FUMARATE (SR) TAB PO (08:20)
[2019-01-16] MEDS: CLOPIDOGREL 75 MG TAB PO (08:20)
[2019-01-16] MEDS: NICOTINE (21 MG/24 HR) PATCH TRANSDERM (08:22)
[2019-01-16] MEDS: BUSPIRONE 10 MG TAB PO ×3 (08:38→20:45)
[2019-01-16] MEDS: ENOXAPARIN 40 MG/0.4 ML SYG SC (08:38)
[2019-01-16] MEDS: BUPROPION (XL) 150 MG TAB PO (08:38)
[2019-01-16 11:01] LABS: ANISOCYTOSIS 1+ (0-0); BAND NEUTROPHILS % (M) 1 % (0-4); GIANT THROMBO% (M) 2 % (0-0); LYMPHOCYTES #M 0.8 10^3/ul (0.8-2.9); LYMPHOCYTES % (M) 17 % (15-51); MONOCYTE #M 0.1 10^3/ul (0.3-0.9); MONOCYTES % (M) 3 % (0-11); PLATELET ESTIMATE NORMAL; POIKILOCYTOSIS 1+ (0-0); POLYCHROMASIA 3+ (0-0); SEGMENTED NEUTROPHILS (M) % 79 % (39-77); SMUDGE%M 4 % (0-0)
[2019-01-16] MEDS: HYDROCODONE/APAP (5/325) TAB PO ×2 (11:40→20:50)
[2019-01-16] MEDS: ATORVASTATIN 20 MG TAB PO (20:24)
[2019-01-16] MEDS: INSULIN GLARGINE [LANTus] (100 UNITS/ML) SYG SC (20:44)
[2019-01-17] MEDS: LEVOFLOXACIN 750 MG TABLET PO (06:12)
[2019-01-17 06:25] LABS: ADD MAN DIFF? NO
[2019-01-17 06:33] LABS: WHITE BLOOD COUNT 7.1 10^3/ul (4.8-10.8)
[2019-01-17 06:33] LABS: BASOPHIL # 0.1 10^3/ul (0.0-0.1); BASOPHILS % 0.8 % (0.0-2.0); EOSINOPHILS # 0.2 10^3/ul (0.0-0.5); EOSINOPHILS % 2.4 % (0.0-7.0); HEMATOCRIT 28.5 % (42.0-52.0); HEMOGLOBIN 9.1 g/dl (14.0-18.0); LYMPHOCYTES # 1.5 10^3/ul (0.8-2.9); LYMPHOCYTES % 20.8 % (15.0-51.0); MEAN CORPUSCULAR HEMOGLOBIN 28.1 pg (29.0-33.0); MEAN CORPUSCULAR HGB CONC 31.9 g/dl (32.0-37.0); MEAN PLATELET VOLUME 9.5 fl (7.4-10.4); MONOCYTE # 0.7 10^3/ul (0.3-0.9); MONOCYTES % 9.3 % (0.0-11.0); NEUTROPHIL # 4.7 10^3/ul (1.6-7.5); NEUTROPHILS % 66.1 % (39.0-77.0); PLATELET COUNT 272 10^3/UL (140-415); RED BLOOD COUNT 3.24 10^6/ul (4.70-6.10); RED CELL DISTRIBUTION WIDTH 13.1 % (11.5-14.5)
[2019-01-17] MEDS: INSULIN ASPART [NOVOLOG] 3 ML PEN SC ×4 (09:06→20:37)
[2019-01-17] MEDS: FLUCONAZOLE 200 MG TAB PO (10:34)
[2019-01-17] MEDS: FERROUS FUMARATE (SR) TAB PO (10:34)
[2019-01-17] MEDS: FISH OIL 1,000 MG CAP PO ×2 (10:34→20:25)
[2019-01-17] MEDS: NICOTINE (21 MG/24 HR) PATCH TRANSDERM (10:34)
[2019-01-17] MEDS: BUSPIRONE 10 MG TAB PO ×2 (10:34→20:21)
[2019-01-17] MEDS: BUPROPION (XL) 150 MG TAB PO (10:34)
[2019-01-17] MEDS: CLOPIDOGREL 75 MG TAB PO (10:34)
[2019-01-17] MEDS: VANCOMYCIN 1 GM 250 ML IVPB ×2 (10:35→20:22)
[2019-01-17] MEDS: ENOXAPARIN 40 MG/0.4 ML SYG SC (10:43)
[2019-01-17] MEDS: HYDROCODONE/APAP (5/325) TAB PO (20:25)
[2019-01-17] MEDS: ATORVASTATIN 20 MG TAB PO (20:25)
[2019-01-17] MEDS: INSULIN GLARGINE [LANTus] (100 UNITS/ML) SYG SC (20:37)
[2019-01-18] MEDS: LEVOFLOXACIN 750 MG TABLET PO (06:27)
[2019-01-18] MEDS: INSULIN ASPART [NOVOLOG] 3 ML PEN SC ×4 (08:26→20:25)
[2019-01-18 08:29] LABS: VANCOMYCIN,TROUGH 14.4 ug/ml (10.0-20.0)
[2019-01-18 08:30] LABS: BLOOD UREA NITROGEN 24 mg/dl (7-20)
[2019-01-18 08:30] LABS: CREATININE 0.93 mg/dl (0.61-1.24)
[2019-01-18] MEDS: VANCOMYCIN 1 GM 250 ML IVPB ×2 (09:23→20:22)
[2019-01-18] MEDS: FISH OIL 1,000 MG CAP PO ×2 (09:24→20:22)
[2019-01-18] MEDS: BUSPIRONE 10 MG TAB PO ×2 (09:24→20:35)
[2019-01-18] MEDS: NICOTINE (21 MG/24 HR) PATCH TRANSDERM (09:24)
[2019-01-18] MEDS: FERROUS FUMARATE (SR) TAB PO (09:24)
[2019-01-18] MEDS: FLUCONAZOLE 200 MG TAB PO (09:24)
[2019-01-18] MEDS: BUPROPION (XL) 150 MG TAB PO (09:24)
[2019-01-18] MEDS: CLOPIDOGREL 75 MG TAB PO (09:24)
[2019-01-18] MEDS: ENOXAPARIN 40 MG/0.4 ML SYG SC (09:29)
[2019-01-18] MEDS: ATORVASTATIN 20 MG TAB PO (20:23)
[2019-01-18] MEDS: INSULIN GLARGINE [LANTus] (100 UNITS/ML) SYG SC (20:34)
[2019-01-18] MEDS: HYDROCODONE/APAP (5/325) TAB PO (20:41)
[2019-01-19] MEDS: LEVOFLOXACIN 750 MG TABLET PO (05:44)
[2019-01-19] MEDS: INSULIN ASPART [NOVOLOG] 3 ML PEN SC ×4 (08:00→20:28)
[2019-01-19] MEDS: BUSPIRONE 10 MG TAB PO ×2 (09:00→20:29)
[2019-01-19] MEDS ORDERED: INSULIN ASPART [NOVOLOG] 3 ML PEN SC (09:00)
[2019-01-19] MEDS: BUPROPION (XL) 150 MG TAB PO (09:00)
[2019-01-19] MEDS: FERROUS FUMARATE (SR) TAB PO (09:21)
[2019-01-19] MEDS: VANCOMYCIN 1 GM 250 ML IVPB ×2 (09:21→20:25)
[2019-01-19] MEDS: FLUCONAZOLE 200 MG TAB PO (09:21)
[2019-01-19] MEDS: NICOTINE (21 MG/24 HR) PATCH TRANSDERM (09:22)
[2019-01-19] MEDS: FISH OIL 1,000 MG CAP PO ×2 (09:22→20:26)
[2019-01-19] MEDS: CLOPIDOGREL 75 MG TAB PO (09:22)
[2019-01-19] MEDS: ENOXAPARIN 40 MG/0.4 ML SYG SC (09:26)
[2019-01-19] MEDS: ATORVASTATIN 20 MG TAB PO (20:26)
[2019-01-19] MEDS: INSULIN GLARGINE [LANTus] (100 UNITS/ML) SYG SC (20:29)
[2019-01-19] MEDS: HYDROCODONE/APAP (5/325) TAB PO (20:44)
[2019-01-19] MEDS: hydrALAzine 20 MG INJ IV (20:47)
[2019-01-20] MEDS: LEVOFLOXACIN 750 MG TABLET PO (05:50)
[2019-01-20] MEDS: INSULIN ASPART [NOVOLOG] 3 ML PEN SC ×4 (07:00→20:28)
[2019-01-20] MEDS: BUSPIRONE 10 MG TAB PO ×2 (08:19→20:00)
[2019-01-20] MEDS: FISH OIL 1,000 MG CAP PO ×2 (08:19→20:00)
[2019-01-20] MEDS: ENOXAPARIN 40 MG/0.4 ML SYG SC (08:19)
[2019-01-20] MEDS: NICOTINE (21 MG/24 HR) PATCH TRANSDERM (08:19)
[2019-01-20] MEDS: CLOPIDOGREL 75 MG TAB PO (08:19)
[2019-01-20] MEDS: BUPROPION (XL) 150 MG TAB PO (08:19)
[2019-01-20] MEDS: VANCOMYCIN 1 GM 250 ML IVPB ×2 (08:19→19:51)
[2019-01-20] MEDS: FERROUS FUMARATE (SR) TAB PO (08:19)
[2019-01-20 10:25] LABS: ADD MAN DIFF? NO
[2019-01-20 10:36] LABS: WHITE BLOOD COUNT 6.3 10^3/ul (4.8-10.8)
[2019-01-20 10:36] LABS: BASOPHIL # 0.1 10^3/ul (0.0-0.1); BASOPHILS % 1.3 % (0.0-2.0); EOSINOPHILS # 0.5 10^3/ul (0.0-0.5); EOSINOPHILS % 7.3 % (0.0-7.0); HEMATOCRIT 27.4 % (42.0-52.0); HEMOGLOBIN 8.7 g/dl (14.0-18.0); LYMPHOCYTES # 1.5 10^3/ul (0.8-2.9); LYMPHOCYTES % 23.7 % (15.0-51.0); MEAN CORPUSCULAR HEMOGLOBIN 28.2 pg (29.0-33.0); MEAN CORPUSCULAR HGB CONC 31.8 g/dl (32.0-37.0); MEAN CORPUSCULAR VOLUME 88.7 fl (82.0-101.0); MEAN PLATELET VOLUME 9.4 fl (7.4-10.4); MONOCYTE # 0.6 10^3/ul (0.3-0.9); MONOCYTES % 9.6 % (0.0-11.0); NEUTROPHIL # 3.7 10^3/ul (1.6-7.5); NEUTROPHILS % 57.8 % (39.0-77.0); PLATELET COUNT 299 10^3/UL (140-415); RED BLOOD COUNT 3.09 10^6/ul (4.70-6.10); RED CELL DISTRIBUTION WIDTH 13.3 % (11.5-14.5)
[2019-01-20 10:47] LABS: ANION GAP 8 (5-13); BLOOD UREA NITROGEN 21 mg/dl (7-20); CALCIUM 9.2 mg/dl (8.4-10.2); CARBON DIOXIDE 26 mmol/L (21-31); CHLORIDE 107 mmol/L (97-110); CREATININE 0.95 mg/dl (0.61-1.24); Estimated GFR > 60 mL/min (>60); GLUCOSE 130 mg/dl (70-220); MAGNESIUM 1.8 mg/dl (1.7-2.5); POTASSIUM 3.5 mmol/L (3.5-5.1); SODIUM 141 mmol/L (135-144)
[2019-01-20] MEDS ORDERED: PROPOFOL 20 ML (11:51)
[2019-01-20] MEDS ORDERED: LIDOCAINE 2% (SDV) 5 ML INJ (11:51)
[2019-01-20] MEDS ORDERED: DIPHENHYDRAMINE 50 MG INJ IV (12:00)
[2019-01-20] MEDS ORDERED: METOCLOPRAMIDE 10 MG INJ IV (12:00)
[2019-01-20] MEDS ORDERED: MIDAZOLAM 1 MG/ML 2 ML INJ IV (12:00)
[2019-01-20] MEDS ORDERED: LABETALOL HCL 20MG INJ IV (12:00)
[2019-01-20] MEDS ORDERED: HYDROmorphONE 1 MG/5 ML IV SYRINGE IV ×2 (12:00)
[2019-01-20] MEDS ORDERED: OXYCODONE/ACETAMINOPHEN (5/325) TAB PO ×2 (12:00)
[2019-01-20] MEDS ORDERED: EPHEDrine 25 MG/5 ML SYG IV (12:00)
[2019-01-20] MEDS ORDERED: ONDANSETRON 4 MG INJ IV (12:00)
[2019-01-20] MEDS ORDERED: FENTAnyl 50 MCG/ML VIAL IV ×3 (12:00)
[2019-01-20] MEDS ORDERED: MEPERIDINE 25 MG INJ IV (12:00)
[2019-01-20] MEDS ORDERED: EPHEDrine 25 MG/5 ML SYG (12:18)
[2019-01-20] MEDS: POLYMYXIN B 500000 UNIT INJ (12:39)
[2019-01-20] MEDS: BACITRACIN 50000 UNITS INJ (12:39)
[2019-01-20] MEDS: LIDOCAINE 1% (MPF) 30 ML INJ (12:39)
[2019-01-20] MEDS: hydrALAzine 20 MG INJ IV (13:05)
[2019-01-20] MEDS: HYDROmorphONE 1 MG/5 ML IV SYRINGE IV (13:20)
[2019-01-20] MEDS: HYDROCODONE/APAP (5/325) TAB PO (19:52)
[2019-01-20] MEDS: ATORVASTATIN 20 MG TAB PO (20:00)
[2019-01-20] MEDS: INSULIN GLARGINE [LANTus] (100 UNITS/ML) SYG SC (20:26)
[2019-01-21] MEDS: LEVOFLOXACIN 750 MG TABLET PO (06:07)
[2019-01-21 07:51] LABS: VANCOMYCIN,TROUGH 17.4 ug/ml (10.0-20.0)
[2019-01-21] MEDS: NICOTINE (21 MG/24 HR) PATCH TRANSDERM (08:42)
[2019-01-21] MEDS: FISH OIL 1,000 MG CAP PO ×2 (08:42→20:55)
[2019-01-21] MEDS: FERROUS FUMARATE (SR) TAB PO (08:47)
[2019-01-21] MEDS: CLOPIDOGREL 75 MG TAB PO (08:47)
[2019-01-21] MEDS: BUPROPION (XL) 150 MG TAB PO (08:47)
[2019-01-21] MEDS: BUSPIRONE 10 MG TAB PO ×2 (08:47→21:00)
[2019-01-21] MEDS: VANCOMYCIN 1 GM 250 ML IVPB ×2 (08:48→20:19)
[2019-01-21] MEDS: INSULIN ASPART [NOVOLOG] 3 ML PEN SC ×4 (08:49→20:58)
[2019-01-21] MEDS: ENOXAPARIN 40 MG/0.4 ML SYG SC (08:50)
[2019-01-21] MEDS: HYDROCODONE/APAP (5/325) TAB PO ×2 (12:16→20:55)
[2019-01-21] MEDS: ATORVASTATIN 20 MG TAB PO (20:55)
[2019-01-21] MEDS: INSULIN GLARGINE [LANTus] (100 UNITS/ML) SYG SC (20:58)
[2019-01-22] MEDS: LEVOFLOXACIN 750 MG TABLET PO (05:47)
[2019-01-22 06:49] LABS: CREATININE 0.71 mg/dl (0.61-1.24)
[2019-01-22 06:49] LABS: BLOOD UREA NITROGEN 19 mg/dl (7-20)
[2019-01-22] MEDS: INSULIN ASPART [NOVOLOG] 3 ML PEN SC ×4 (07:00→21:26)
[2019-01-22] MEDS: BUSPIRONE 10 MG TAB PO ×2 (09:00→21:00)
[2019-01-22] MEDS: BUPROPION (XL) 150 MG TAB PO (09:00)
[2019-01-22] MEDS: VANCOMYCIN 1 GM 250 ML IVPB (09:18)
[2019-01-22] MEDS: CLOPIDOGREL 75 MG TAB PO (09:19)
[2019-01-22] MEDS: NICOTINE (21 MG/24 HR) PATCH TRANSDERM (09:19)
[2019-01-22] MEDS: ENOXAPARIN 40 MG/0.4 ML SYG SC (09:20)
[2019-01-22] MEDS: HYDROCODONE/APAP (5/325) TAB PO (10:40)
[2019-01-22] MEDS: TAMSULOSIN (SR) 0.4 MG CAP PO ×2 (12:18→21:23)
[2019-01-22] MEDS: ALTEPLASE (CATHFLO) 2 MG INJ CATHETER (12:18)
[2019-01-22] MEDS: AMOXICILLIN 500 MG CAP PO ×2 (17:04→22:36)
[2019-01-22] MEDS: ATORVASTATIN 20 MG TAB PO (21:23)
[2019-01-22] MEDS: INSULIN GLARGINE [LANTus] (100 UNITS/ML) SYG SC (21:27)
[2019-01-23 01:53] LABS: ADD UMIC YES; UR ASCORBIC ACID NEGATIVE (NEGATIVE); UR BACTERIA FEW /HPF (NONE SEEN); UR BILIRUBIN (Dip) NEGATIVE (NEGATIVE); UR BLOOD (Dip) 3+ mg/dL (NEGATIVE); UR CLARITY SLIGHTLY CLOUDY (CLEAR); UR COLOR YELLOW (YELLOW); UR GLUCOSE (Dip) 2+ mg/dL (NEGATIVE); UR KETONES (Dip) NEGATIVE (NEGATIVE); UR LEUKOCYTE ESTERASE (Dip) NEGATIVE Leu/ul (NEGATIVE); UR MUCUS FEW /HPF (NONE SEEN); UR NITRITE (Dip) NEGATIVE (NEGATIVE); UR RBC 27 /HPF (0-5); UR SPECIFIC GRAVITY (Dip) 1.014 (1.003-1.030); UR TOTAL PROTEIN (Dip) 1+ mg/dl (NEGATIVE); UR UROBILINOGEN (Dip) NEGATIVE (NEGATIVE); UR WBC 2 /HPF (0-5)
[2019-01-23] MEDS: AMOXICILLIN 500 MG CAP PO ×3 (06:05→21:54)
[2019-01-23] MEDS: LEVOFLOXACIN 750 MG TABLET PO (06:06)
[2019-01-23] MEDS: INSULIN ASPART [NOVOLOG] 3 ML PEN SC ×4 (07:00→21:32)
[2019-01-23] MEDS: CLOPIDOGREL 75 MG TAB PO (08:16)
[2019-01-23] MEDS: ENOXAPARIN 40 MG/0.4 ML SYG SC (08:16)
[2019-01-23] MEDS: NICOTINE (21 MG/24 HR) PATCH TRANSDERM (08:16)
[2019-01-23] MEDS: BUSPIRONE 10 MG TAB PO ×2 (08:19→21:00)
[2019-01-23] MEDS: BUPROPION (XL) 150 MG TAB PO (08:20)
[2019-01-23] MEDS: ATORVASTATIN 20 MG TAB PO (21:12)
[2019-01-23] MEDS: TAMSULOSIN (SR) 0.4 MG CAP PO (21:12)
[2019-01-23] MEDS: INSULIN GLARGINE [LANTus] (100 UNITS/ML) SYG SC (21:18)
[2019-01-24] MEDS: AMOXICILLIN 500 MG CAP PO ×3 (05:57→21:38)
[2019-01-24] MEDS: LEVOFLOXACIN 750 MG TABLET PO (05:57)
[2019-01-24] MEDS: INSULIN ASPART [NOVOLOG] 3 ML PEN SC ×4 (08:04→20:33)
[2019-01-24] MEDS: NICOTINE (21 MG/24 HR) PATCH TRANSDERM (08:05)
[2019-01-24] MEDS: ENOXAPARIN 40 MG/0.4 ML SYG SC (08:05)
[2019-01-24] MEDS: CLOPIDOGREL 75 MG TAB PO (08:05)
[2019-01-24] MEDS: BUSPIRONE 10 MG TAB PO ×2 (08:06→20:37)
[2019-01-24] MEDS: BUPROPION (XL) 150 MG TAB PO (08:06)
[2019-01-24] MEDS: INSULIN GLARGINE [LANTus] (100 UNITS/ML) SYG SC (20:32)
[2019-01-24] MEDS: TAMSULOSIN (SR) 0.4 MG CAP PO (20:34)
[2019-01-24] MEDS: ATORVASTATIN 20 MG TAB PO (20:35)
[2019-01-25] MEDS: LEVOFLOXACIN 750 MG TABLET PO (05:08)
[2019-01-25] MEDS: AMOXICILLIN 500 MG CAP PO ×3 (05:08→21:39)
[2019-01-25] MEDS: INSULIN ASPART [NOVOLOG] 3 ML PEN SC ×4 (08:00→20:20)
[2019-01-25] MEDS: CLOPIDOGREL 75 MG TAB PO (08:28)
[2019-01-25] MEDS: BUSPIRONE 10 MG TAB PO ×2 (08:30→20:20)
[2019-01-25] MEDS: BUPROPION (XL) 150 MG TAB PO (08:31)
[2019-01-25] MEDS: NICOTINE (21 MG/24 HR) PATCH TRANSDERM (08:32)
[2019-01-25] MEDS: ENOXAPARIN 40 MG/0.4 ML SYG SC (08:34)
[2019-01-25] MEDS: ATORVASTATIN 20 MG TAB PO (20:19)
[2019-01-25] MEDS: INSULIN GLARGINE [LANTus] (100 UNITS/ML) SYG SC (20:19)
[2019-01-25] MEDS: TAMSULOSIN (SR) 0.4 MG CAP PO (20:20)
[2019-01-26] MEDS: LEVOFLOXACIN 750 MG TABLET PO (05:50)
[2019-01-26] MEDS: AMOXICILLIN 500 MG CAP PO ×3 (05:50→21:16)
[2019-01-26] MEDS: INSULIN ASPART [NOVOLOG] 3 ML PEN SC ×4 (08:00→20:03)
[2019-01-26] MEDS: BUPROPION (XL) 150 MG TAB PO (08:10)
[2019-01-26] MEDS: BUSPIRONE 10 MG TAB PO ×2 (08:10→20:02)
[2019-01-26] MEDS: CLOPIDOGREL 75 MG TAB PO (08:10)
[2019-01-26] MEDS: ENOXAPARIN 40 MG/0.4 ML SYG SC (08:12)
[2019-01-26] MEDS: NICOTINE (21 MG/24 HR) PATCH TRANSDERM (08:15)
[2019-01-26] MEDS: ATORVASTATIN 20 MG TAB PO (20:01)
[2019-01-26] MEDS: TAMSULOSIN (SR) 0.4 MG CAP PO (20:02)
[2019-01-26] MEDS: INSULIN GLARGINE [LANTus] (100 UNITS/ML) SYG SC (20:04)
[2019-01-27] MEDS: AMOXICILLIN 500 MG CAP PO ×3 (05:42→21:23)
[2019-01-27] MEDS: LEVOFLOXACIN 750 MG TABLET PO (05:42)
[2019-01-27] MEDS: BUSPIRONE 10 MG TAB PO ×2 (08:00→21:00)
[2019-01-27] MEDS: CLOPIDOGREL 75 MG TAB PO (08:00)
[2019-01-27] MEDS: BUPROPION (XL) 150 MG TAB PO (08:01)
[2019-01-27] MEDS: NICOTINE (21 MG/24 HR) PATCH TRANSDERM (08:06)
[2019-01-27] MEDS: INSULIN ASPART [NOVOLOG] 3 ML PEN SC ×4 (08:13→21:20)
[2019-01-27] MEDS: ENOXAPARIN 40 MG/0.4 ML SYG SC (08:13)
[2019-01-27] MEDS: ATORVASTATIN 20 MG TAB PO (21:15)
[2019-01-27] MEDS: TAMSULOSIN (SR) 0.4 MG CAP PO (21:15)
[2019-01-27] MEDS: INSULIN GLARGINE [LANTus] (100 UNITS/ML) SYG SC (21:19)
[2019-01-28 05:21] LABS: ADD MAN DIFF? NO
[2019-01-28 05:29] LABS: BASOPHIL # 0.1 10^3/ul (0.0-0.1); BASOPHILS % 1.1 % (0.0-2.0); EOSINOPHILS # 0.4 10^3/ul (0.0-0.5); EOSINOPHILS % 6.7 % (0.0-7.0); HEMATOCRIT 26.6 % (42.0-52.0); HEMOGLOBIN 8.5 g/dl (14.0-18.0); LYMPHOCYTES # 1.4 10^3/ul (0.8-2.9); MEAN CORPUSCULAR HEMOGLOBIN 28.4 pg (29.0-33.0); MEAN PLATELET VOLUME 9.3 fl (7.4-10.4); MONOCYTE # 0.5 10^3/ul (0.3-0.9); MONOCYTES % 8.7 % (0.0-11.0); NEUTROPHIL # 3.2 10^3/ul (1.6-7.5); NEUTROPHILS % 57.1 % (39.0-77.0); PLATELET COUNT 259 10^3/UL (140-415); RED BLOOD COUNT 2.99 10^6/ul (4.70-6.10); RED CELL DISTRIBUTION WIDTH 13.7 % (11.5-14.5)
[2019-01-28 05:29] LABS: WHITE BLOOD COUNT 5.5 10^3/ul (4.8-10.8)
[2019-01-28 05:47] LABS: MAGNESIUM 1.7 mg/dl (1.7-2.5)
[2019-01-28 05:47] LABS: PHOSPHORUS 3.4 mg/dl (2.5-4.9)
[2019-01-28 05:53] LABS: ANION GAP 7 (5-13); BLOOD UREA NITROGEN 24 mg/dl (7-20); CALCIUM 8.9 mg/dl (8.4-10.2); CARBON DIOXIDE 27 mmol/L (21-31); CHLORIDE 106 mmol/L (97-110); CREATININE 0.89 mg/dl (0.61-1.24); GLUCOSE 151 mg/dl (70-220); POTASSIUM 3.7 mmol/L (3.5-5.1); SODIUM 140 mmol/L (135-144)
[2019-01-28] MEDS: LEVOFLOXACIN 750 MG TABLET PO (06:13)
[2019-01-28] MEDS: AMOXICILLIN 500 MG CAP PO ×3 (06:13→21:16)
[2019-01-28] MEDS: BUPROPION (XL) 150 MG TAB PO (08:44)
[2019-01-28] MEDS: BUSPIRONE 10 MG TAB PO ×2 (08:44→21:00)
[2019-01-28] MEDS: CLOPIDOGREL 75 MG TAB PO (08:50)
[2019-01-28] MEDS: NICOTINE (21 MG/24 HR) PATCH TRANSDERM (08:51)
[2019-01-28] MEDS: INSULIN ASPART [NOVOLOG] 3 ML PEN SC ×4 (08:54→21:19)
[2019-01-28] MEDS: ENOXAPARIN 40 MG/0.4 ML SYG SC (08:54)
[2019-01-28] MEDS: TAMSULOSIN (SR) 0.4 MG CAP PO (21:13)
[2019-01-28] MEDS: ATORVASTATIN 20 MG TAB PO (21:13)
[2019-01-28] MEDS: INSULIN GLARGINE [LANTus] (100 UNITS/ML) SYG SC (21:20)
[2019-01-29] MEDS: AMOXICILLIN 500 MG CAP PO ×2 (06:12→13:32)
[2019-01-29] MEDS: LEVOFLOXACIN 750 MG TABLET PO (06:12)
[2019-01-29] MEDS: INSULIN ASPART [NOVOLOG] 3 ML PEN SC ×4 (08:00→20:54)
[2019-01-29] MEDS: CHOLECALCIFEROL 2,000 UNIT CAP PO (08:22)
[2019-01-29] MEDS: CLOPIDOGREL 75 MG TAB PO (08:22)
[2019-01-29] MEDS: BUSPIRONE 10 MG TAB PO ×2 (08:26→20:53)
[2019-01-29] MEDS: BUPROPION (XL) 150 MG TAB PO (08:26)
[2019-01-29] MEDS: NICOTINE (21 MG/24 HR) PATCH TRANSDERM (08:27)
[2019-01-29] MEDS: ENOXAPARIN 40 MG/0.4 ML SYG SC (08:30)
[2019-01-29] MEDS: TAMSULOSIN (SR) 0.4 MG CAP PO (20:53)
[2019-01-29] MEDS: ATORVASTATIN 20 MG TAB PO (20:53)
[2019-01-29] MEDS: INSULIN GLARGINE [LANTus] (100 UNITS/ML) SYG SC (20:55)
[2019-01-30] MEDS: INSULIN ASPART [NOVOLOG] 3 ML PEN SC ×3 (08:00→17:54)
[2019-01-30] MEDS: CHOLECALCIFEROL 2,000 UNIT CAP PO (08:39)
[2019-01-30] MEDS: CLOPIDOGREL 75 MG TAB PO (08:39)
[2019-01-30] MEDS: BUPROPION (XL) 150 MG TAB PO (08:40)
[2019-01-30] MEDS: BUSPIRONE 10 MG TAB PO (08:40)
[2019-01-30] MEDS: NICOTINE (21 MG/24 HR) PATCH TRANSDERM (08:41)
[2019-01-30] MEDS: ENOXAPARIN 40 MG/0.4 ML SYG SC (08:43)
== END 2019-01-30 18:40 | disposition home health service (06) | DRG 253 ==
LOC: ICU 01-15 12:30 → 2NE 01-20 → E/R 10:17 → ICU 01-15 16:45 → TEL 01-16 11:23 → PP2 12:52
PROC: 0Y6Q0Z1 Detachment at Left 1st Toe, High, Open Approach (ICD-10-PCS; principal; 2018-12-31 14:43)
PROC: 04WY07Z Revision of Autologous Tissue Substitute in Lower Artery, Open Approach (ICD-10-PCS; 2018-12-31 14:43)
PROC: 06BQ0ZZ Excision of Left Saphenous Vein, Open Approach (ICD-10-PCS; 2018-12-31 14:43)
PROC: 0JBR0ZZ Excision of Left Foot Subcutaneous Tissue and Fascia, Open Approach (ICD-10-PCS; 2018-12-31 14:43)
PROC: B400YZZ Plain Radiography of Abdominal Aorta using Other Contrast (ICD-10-PCS; 2018-12-31 14:43)
PROC: 05HY33Z Insertion of Infusion Device into Upper Vein, Percutaneous Approach (ICD-10-PCS; 2018-12-31 14:43)
DX: E11.52 Type 2 diabetes mellitus with diabetic peripheral angiopathy with gangrene (principal); L03.116 Cellulitis of left lower limb; M86.8X7 Other osteomyelitis, ankle and foot; B49 Unspecified mycosis; E87.5 Hyperkalemia; E11.65 Type 2 diabetes mellitus with hyperglycemia; E11.40 Type 2 diabetes mellitus with diabetic neuropathy, unspecified; E11.8 Type 2 diabetes mellitus with unspecified complications; D64.9 Anemia, unspecified; I73.9 Peripheral vascular disease, unspecified; E78.5 Hyperlipidemia, unspecified; F41.9 Anxiety disorder, unspecified; F32.9 Major depressive disorder, single episode, unspecified; Z79.4 Long term (current) use of insulin; F17.200 Nicotine dependence, unspecified, uncomplicated; I10 Essential (primary) hypertension; B95.2 Enterococcus as the cause of diseases classified elsewhere
CPT/HCPCS: 36246; 36415; 36569; 71045; 73630-LT; 73718; 75625; 75710; 76937; 80048; 80053; 80061; 80202; 81001; 82306; 82565; 82652; 82947; 82962; 83036; 83540; 83735; 84100; 84520; 85014; 85018; 85025; 85610; 85730; 86850; 86900; 86901; 87040-91; 87070; 87081; 87086; 87102; 88305; 88311; 93005; 93926; 93970; 93971; 96365; 96375; 97110; 97116; 97162; 97164; 97530; 99285-25

== ENCOUNTER 2019-04-01 08:49 | Emergency (ER) | payer OTHER, MEDICAID ==
[2019-04-01] MEDS: ONDANSETRON 4 MG INJ IV (09:50)
[2019-04-01] MEDS: SOD CHLORIDE 0.9% 1,000 ML IV (09:50)
[2019-04-01] MEDS: LIDOCAINE/MYLANTA 40 ML BTL PO (09:50)
[2019-04-01] MEDS: FAMOTIDINE 20 MG INJ IV (09:50)
[2019-04-01] MEDS: BELLADONNA/PHENOBARBITAL TAB PO (09:50)
== END 2019-04-01 12:25 | disposition home or self-care (01) ==
LOC: E/R 08:49
DX: R10.13 Epigastric pain (principal); E11.9 Type 2 diabetes mellitus without complications; F17.210 Nicotine dependence, cigarettes, uncomplicated; R11.2 Nausea with vomiting, unspecified; Z79.84 Long term (current) use of oral hypoglycemic drugs
CPT/HCPCS: 82962; 96374; 96375; 99284-25

== ENCOUNTER 2019-05-02 10:30 | Emergency (ER) | payer OTHER ==
[2019-05-02 11:41] LABS: ADD MAN DIFF? NO
[2019-05-02 11:43] LABS: WHITE BLOOD COUNT 6.5 10^3/ul (4.8-10.8)
[2019-05-02 11:43] LABS: BASOPHILS % 0.6 % (0.0-2.0); EOSINOPHILS # 0.2 10^3/ul (0.0-0.5); EOSINOPHILS % 3.1 % (0.0-7.0); HEMATOCRIT 33.1 % (42.0-52.0); HEMOGLOBIN 10.8 g/dl (14.0-18.0); LYMPHOCYTES # 1.7 10^3/ul (0.8-2.9); LYMPHOCYTES % 26.8 % (15.0-51.0); MEAN CORPUSCULAR HEMOGLOBIN 28.7 pg (29.0-33.0); MEAN CORPUSCULAR HGB CONC 32.6 g/dl (32.0-37.0); MONOCYTE # 0.5 10^3/ul (0.3-0.9); MONOCYTES % 7.8 % (0.0-11.0); NEUTROPHILS % 61.5 % (39.0-77.0); PLATELET COUNT 251 10^3/UL (140-415); RED BLOOD COUNT 3.76 10^6/ul (4.70-6.10); RED CELL DISTRIBUTION WIDTH 13.7 % (11.5-14.5)
[2019-05-02 12:01] LABS: ALANINE AMINOTRANSFERASE 11 IU/L (13-69); ALBUMIN 4.2 g/dl (3.3-4.9); ALKALINE PHOSPHATASE 64 IU/L (42-121); ANION GAP 8 (5-13); ASPARTATE AMINO TRANSFERASE 16 IU/L (15-46); BILIRUBIN,INDIRECT 0.3 mg/dl (0-1.1); BILIRUBIN,TOTAL 0.3 mg/dl (0.2-1.3); BLOOD UREA NITROGEN 31 mg/dl (7-20); CALCIUM 9.8 mg/dl (8.4-10.2); CARBON DIOXIDE 27 mmol/L (21-31); CHLORIDE 104 mmol/L (97-110); GLUCOSE 166 mg/dl (70-220); POTASSIUM 4.2 mmol/L (3.5-5.1); SODIUM 139 mmol/L (135-144); TOTAL PROTEIN 7.2 g/dl (6.1-8.1)
[2019-05-02 12:02] LABS: INR 0.91; PROTIME 12.4 Sec (11.9-14.9)
[2019-05-02 12:03] LABS: PARTIAL THROMBOPLASTIN TIME 29.7 Sec (23.0-35.0)
[2019-05-02] MEDS ORDERED: ACETAMINOPHEN 325 MG TAB PO (13:00)
[2019-05-02] MEDS ORDERED: ONDANSETRON 4 MG INJ IV (13:00)
== END 2019-05-02 13:28 | disposition home or self-care (01) ==
LOC: E/R 10:30
DX: E11.52 Type 2 diabetes mellitus with diabetic peripheral angiopathy with gangrene (principal); F17.210 Nicotine dependence, cigarettes, uncomplicated; R06.00 Dyspnea, unspecified; Z79.84 Long term (current) use of oral hypoglycemic drugs
CPT/HCPCS: 71045; 80053; 85025; 85610; 85730; 93005; 99285-25